=== PATIENT | female | born 1955 ===

== ENCOUNTER 2021-05-07 22:09 | Inpatient (IN) | payer SELFPAY ==
--- NOTE | 2021-05-07 22:32 | Emergency Department Report ---
ED Shortness of Breath HPI - General Chief Complaint: Dyspnea/Respdistress Stated Complaint: DIFFICULTY BREATHING Time Seen by Provider: 05/07/21 22:31 Source: EMS Mode of arrival: Stretcher Limitations: Physical Limitation - History of Present Illness Initial Comments: Patient presents by EMS secondary to shortness of breath. Since she has had trouble breathing. She states that she has been coughing up clear phlegm. She has been clearing her throat. She thought that she just had allergies. Regardless, she has become more more short of breath. She describes orthopnea. She has had no pain or swelling in the legs out of the ordinary. She has not had fevers or chills. She has had no chest pain. She has had no sick contacts. Due to her ongoing and worsening dyspnea, EMS was called and the patient was transported here [facility]. - Related Data Allergies Allergy/AdvReac Type Severity Reaction Status Date / Time No Known Allergies Allergy Unverified 05/08/21 01:05 ED Review of Systems ROS: Stated complaint: DIFFICULTY BREATHING Other details as noted in HPI Comment: All other systems reviewed and negative Constitutional: fever (Subjective) Eyes: denies: vision change ENT: denies: throat pain Respiratory: cough Cardiovascular: denies: chest pain Endocrine: denies: unexplained weight loss Gastrointestinal: denies: abdominal pain Genitourinary: denies: dysuria Musculoskeletal: denies: back pain Skin: denies: rash Neurological: denies: paresthesias Hematological/Lymphatic: denies: easy bruising ED Past Medical Hx - Past Medical History Hx Congestive Heart Failure: No - Family History Family history: no significant ED Physical Exam - General Limitations: Physical Limitation (Hypoxia and dyspnea), Other (Pulse ox on oxygen was normal. On room air, she was hypoxic) General appearance: alert, in distress (Moderate), obese - Head Head exam: Present: atraumatic, normocephalic - Eye Eye exam: Present: normal appearance, EOMI. Absent: scleral icterus - ENT ENT exam: Present: normal external ear exam - Neck Neck exam: Present: normal inspection. Absent: meningismus - Respiratory Respiratory exam: Present: respiratory distress (Moderate), rhonchi (Bilateral) - Cardiovascular Cardiovascular Exam: Present: regular rate, normal rhythm. Absent: JVD - GI/Abdominal GI/Abdominal exam: Present: soft. Absent: tenderness - Extremities Exam Extremities exam: Present: normal capillary refill, pedal edema (Bilateral 2+) - Back Exam Back exam: Absent: CVA tenderness (R), CVA tenderness (L) - Neurological Exam Neurological exam: Present: alert, oriented X3, CN II-XII intact. Absent: motor sensory deficit - Psychiatric Psychiatric exam: Present: normal affect, normal mood - Skin Skin exam: Present: warm ED Course Vital Signs 05/07/21 05/08/21 05/08/21 22:24 00:00 02:38 Temperature 99.0 F 98 F Pulse Rate 72 68 72 Respiratory 20 18 18 Rate Blood Pressure 113/54 125/66 127/78 [Left] O2 Sat by Pulse 96 98 100 Oximetry - Reevaluation(s) Reevaluation #1: 05/07/21 22:31 EMS was met upon arrival. IV and labs ordered. X-ray was ordered. Old records noted. Reevaluation #2: 05/08/21 03:30 Work-up was completed and the patient was admitted ED Medical Decision Making - Lab Data Result diagrams: 05/07/21 22:44 05/07/21 22:44 Rhythm strip: Normal sinus rhythm without ectopy per my doctor observed 10 seconds. - EKG Data -: EKG Interpreted by Me - EKG Data 05/08/21 03:30 EKG shows a normal sinus rhythm without ectopy. Intervals are normal. Patient has no ST elevation to suggest STEMI. - Radiology Data Radiology results: report reviewed - Medical Decision Making Patient presents with shortness of breath and reports of dependent edema. Despite this, she does have findings that are more concerning for coronavirus. She has a patchy infiltrative process on x-ray with a normal BN P. Patient be treated symptomatically for coronavirus. She has been admitted. The hospitalist has seen the patient. There is no indication for diuresis. She does not have pneumothorax on x-ray. There is no evidence of STEMI or NSTEMI. Critical Care Time: Yes (45 minutes based on respiratory distress and failure. This is a minus all ) Critical care attestation.: If time is entered above; I have spent that time in minutes in the direct care of this critically ill patient, excluding procedure time. ED Disposition Clinical Impression: Hypoxia, Suspected COVID-19 virus infection Disposition: ADMITTED INPATIENT Is pt being admited?: Yes Condition: Stable Referrals: PRIMARY CARE, [Primary Care Provider] - 3-5 Days
[2021-05-07 23:45] LABS: Alanine Aminotransferase 36 units/L (7-56); Albumin 3.6 g/dL (3.9-5); BUN/Creatinine Ratio 9; Blood Urea Nitrogen 7 mg/dL (7-17); Calcium 8.6 mg/dL (8.4-10.2); Hemolysis Index 11
[2021-05-07 23:51] LABS: Hematocrit 38.4 % (30.3-42.9); Hemoglobin 12.4 gm/dl (10.1-14.3); Mean Corpuscular HGB Conc 32 % (30-34); Mean Corpuscular Volume 92 fl (79-97); Platelet Count 419 K/mm3 (140-440); Red Blood Count 4.17 M/mm3 (3.65-5.03)
--- NOTE | 2021-05-08 00:09 | XRay Report ---
CHEST 1 VIEW INDICATION: cough. COMPARISON: None FINDINGS: SUPPORT DEVICES: None. HEART: Within normal limits. LUNGS/PLEURA: Patchy bibasilar airspace disease worrisome for pneumonia. ADDITIONAL FINDINGS: None. IMPRESSION: 1. Lung findings as above. Signer Name: Moiz Chacon MD Signed: 05/08/2021 12:04 AM Workstation Name: [id number]
[2021-05-08] MEDS ORDERED: ALBUTEROL 8.5 GM MDI INHALATION IH ONE (01:45)
[2021-05-08] MEDS ORDERED: MAGNESIUM HYDROXIDE (MOM) ORAL LIQD UDC PO PRN (01:46)
[2021-05-08] MEDS ORDERED: MORPHINE 2 MG/1 ML INJ IV PRN (01:46)
[2021-05-08] MEDS ORDERED: ONDANSETRON 4 MG/2 ML INJ IV PRN (01:46)
[2021-05-08] MEDS ORDERED: MORPHINE 4 MG/1 ML INJ IV PRN (01:46)
[2021-05-08] MEDS ORDERED: ACETAMINOPHEN 325 MG TAB PO PRN (01:46)
--- NOTE | 2021-05-08 01:55 | History and Physical Report ---
History of Present Illness Date of examination: 05/08/21 Date of admission: 05/08/2021 Chief complaint: Shortness of Breath History of present illness: 66-year-old female presenting to the emergency room complaining of shortness of breath and cough that has been ongoing for the past few weeks. Cough has been productive of some clear sputum. She denies any fever or chills and denies any chest pain. She also indicates that she has noticed some mild swelling of her lower extremities. She denies any headache or dizziness and denies any diaphoresis. Patient decided to call EMS today because of her worsening shortness of breath. She denies any sick contacts and no recent travel. Denies any contact with anyone with COVID-19. Work-up in the emergency room today chest x-ray shows bilateral pneumonia. Patient has been admitted with pneumonia we will also check for COVID-19. Past History Past Medical History: No medical history Past Surgical History: No surgical history Social history: no significant social history Family history: no significant family history Medications and Allergies Allergies Allergy/AdvReac Type Severity Reaction Status Date / Time No Known Allergies Allergy Unverified 05/08/21 01:05 Active Meds: Active Medications Acetaminophen (Acetaminophen 325 Mg Tab) 650 mg PO Q4H PRN PRN Reason: Pain MILD(1-3)/Fever >100.5/MARTINEZ Heparin Sodium (Porcine) (Heparin 5,000 Unit/1 Ml Vial) 5,000 unit SUB-Q Q8HR JEOVANY Sodium Chloride (Nacl 0.9% 1000 Ml) 1,000 mls @ 75 mls/hr IV DIRECT JEOVANY Ceftriaxone Sodium (Rocephin/Ns 2 Gm/100 Ml) 2 gm in 100 mls @ 200 mls/hr IV Q24H JEOVANY; Protocol Azithromycin (Zithromax/Ns) 500 mg in 250 mls @ 250 mls/hr IV Q24H JEOVANY; Protocol Magnesium Hydroxide (Magnesium Hydroxide (Mom) Oral Liqd Udc) 30 ml PO Q4H PRN PRN Reason: Constipation Morphine Sulfate (Morphine 2 Mg/1 Ml Inj) 2 mg IV Q4H PRN PRN Reason: Pain, Moderate (4-6) Morphine Sulfate (Morphine 4 Mg/1 Ml Inj) 4 mg IV Q4H PRN PRN Reason: Pain , Severe (7-10) Ondansetron HCl (Ondansetron 4 Mg/2 Ml Inj) 4 mg IV Q8H PRN PRN Reason: Nausea And Vomiting Sodium Chloride (Sodium Chloride 0.9% 10 Ml Flush Syringe) 10 ml IV BID JEOVANY Sodium Chloride (Sodium Chloride 0.9% 10 Ml Flush Syringe) 10 ml IV PRN PRN PRN Reason: LINE FLUSH Review of Systems Constitutional: no fever, no chills Ears, nose, mouth and throat: no nasal congestion, no sore throat Respiratory: cough, shortness of breath Gastrointestinal: no abdominal pain, no nausea, no vomiting, no diarrhea Genitourinary Female: no pelvic pain, no flank pain, no dysuria, no hematuria Musculoskeletal: no neck pain, no low back pain Integumentary: no rash, no pruritis Neurological: no headaches, no confusion Psychiatric: no anxiety, no depression Endocrine: no polyphagia, no polydipsia, no polyuria, no nocturia Exam - Constitutional Vitals: Temp Pulse Resp BP Pulse Ox 99.0 F 72 20 113/54 96 05/07/21 22:24 05/07/21 22:24 05/07/21 22:24 05/07/21 22:24 05/07/21 22:24 General appearance: Present: no acute distress, well-nourished, obese - EENT Eyes: Present: PERRL, EOM intact. Absent: scleral icterus ENT: hearing intact, clear oral mucosa, dentition normal - Neck Neck: Present: supple, normal ROM - Respiratory Respiratory effort: normal Respiratory: bilateral: diminished - Cardiovascular Rhythm: regular Heart Sounds: Present: S1 & S2. Absent: gallop, systolic murmur, diastolic murmur, rub, click - Extremities Extremities: no ischemia, pulses intact, pulses symmetrical, No edema, normal temperature, normal color, Full ROM Peripheral Pulses: within normal limits - Abdominal General gastrointestinal: Present: soft, non-tender, non-distended, normal bowel sounds. Absent: mass - Integumentary Integumentary: Present: clear, warm, dry, normal turgor. Absent: rash - Musculoskeletal Musculoskeletal: strength equal bilaterally - Psychiatric Psychiatric: appropriate mood/affect, intact judgment & insight, memory intact, cooperative - Neurologic Neurologic: CNII-XII intact, no focal deficits, moves all extremities HEART Score - HEART Score Troponin: Troponin T < 0.010 ng/mL (0.00-0.029) 05/07/21 22:44 Results - Labs CBC & Chem 7: 05/07/21 22:44 05/07/21 22:44 Labs: Abnormal lab results 05/07/21 05/07/21 Range/Units 22:44 22:44 D-Dimer 967.09 H (0-234) ng/mlDDU Glucose 123 H (65-100) mg/dL AST 41 H (5-40) units/L Lactate Dehydrogenase 429 H (91-180) units/L C-Reactive Protein 5.60 H (0.00-1.30) mg/dL Albumin 3.6 L (3.9-5) g/dL Assessment and Plan - Patient Problems (1) Suspected COVID-19 virus infection Current Visit: Yes Status: Acute Plan to address problem: Patient placed on empiric IV antibiotics and IV steroid. We will schedule for COVID-19 testing. (2) Hypoxia Current Visit: Yes Status: Acute Plan to address problem: Will keep O2 saturation greater than equal to 92%. (3) DVT prophylaxis Current Visit: Yes Status: Acute Plan to address problem: Patient was placed on subcutaneous heparin. (4) Full code status Current Visit: Yes Status: Acute Plan to address problem: Patient is a full code.
[2021-05-08] MEDS: cefTRIAXone/NS 2 GM/100 ML 2 GM/100 ML BAG IV SCH ×2 (02:41→10:24)
[2021-05-08] MEDS: AZITHROMYCIN/NS 500 MG/250 ML 500 MG/250 ML BAG IV SCH ×2 (02:41→10:24)
[2021-05-08] MEDS: HEPARIN 5,000 UNIT/1 ML VIAL SUB-Q SCH ×3 (06:00→22:42)
[2021-05-08 07:07] LABS: Total Cells Counted 100
[2021-05-08 07:08] LABS: Band Neutrophils # (Manual) 0.2 K/mm3; Basophils % (Manual) 0 % (0.0-1.8); Eosinophils % (Manual) 0 % (0.0-4.3)
[2021-05-08 07:09] LABS: Platelet Estimate Consistent w Auto
--- NOTE | 2021-05-08 15:29 | Consultation ---
History of Present Illness - Reason for Consult Consult date: 05/08/21 COVID PUI Requesting physician: BRAD VIDALES - History of Present Illness The patient is a 66-year-old female with known medical history admitted with shortness of breath and concerns for COVID-19 PUI. Afebrile, hypoxic and required nasal cannula. CRP 5.6, procalcitonin 0.07. Chest x-ray showed patchy bilateral pneumonia. Ferritin 181, LDH 429. D-dimer 967 Review of Systems: reviewed in the chart, unable to obtain, minimize risk of transmission Past History Past Medical History: No medical history Past Surgical History: No surgical history Social history: no significant social history Family history: no significant family history Medications and Allergies Allergies Allergy/AdvReac Type Severity Reaction Status Date / Time No Known Allergies Allergy Unverified 05/08/21 01:05 Active Meds: Active Medications Acetaminophen (Acetaminophen 325 Mg Tab) 650 mg PO Q4H PRN PRN Reason: Pain MILD(1-3)/Fever >100.5/MARTINEZ Azithromycin (Azithromycin 250 Mg Tab) 500 mg PO QDAY JEOVANY; Protocol Heparin Sodium (Porcine) (Heparin 5,000 Unit/1 Ml Vial) 5,000 unit SUB-Q Q8HR JEOVANY Last Admin: 05/08/21 06:00 Dose: 5,000 unit Sodium Chloride (Nacl 0.9% 1000 Ml) 1,000 mls @ 75 mls/hr IV DIRECT JEOVANY Ceftriaxone Sodium (Rocephin/Ns 2 Gm/100 Ml) 2 gm in 100 mls @ 200 mls/hr IV Q24HR JEOVANY; Protocol Last Admin: 05/08/21 10:24 Dose: 200 mls/hr Magnesium Hydroxide (Magnesium Hydroxide (Mom) Oral Liqd Udc) 30 ml PO Q4H PRN PRN Reason: Constipation Morphine Sulfate (Morphine 2 Mg/1 Ml Inj) 2 mg IV Q4H PRN PRN Reason: Pain, Moderate (4-6) Morphine Sulfate (Morphine 4 Mg/1 Ml Inj) 4 mg IV Q4H PRN PRN Reason: Pain , Severe (7-10) Ondansetron HCl (Ondansetron 4 Mg/2 Ml Inj) 4 mg IV Q8H PRN PRN Reason: Nausea And Vomiting Sodium Chloride (Sodium Chloride 0.9% 10 Ml Flush Syringe) 10 ml IV BID [facility] Last Admin: 05/08/21 10:24 Dose: 10 ml Sodium Chloride (Sodium Chloride 0.9% 10 Ml Flush Syringe) 10 ml IV PRN PRN PRN Reason: LINE FLUSH Physical Examination - Physical Exam Narrative exam: Physical Exam (reviewed in chart to minimize risk of transmission) Constitutional: deferred Head, Ears, Nose: deferred Eyes: deferred Neck: deferred Oral: deferred Cardiovascular: deferred Respiratory: deferred GI: deferred Musculoskeletal: deferred Skin: deferred Hem/Lymphatic: deferred Psych: deferred Neurological: deferred - Constitutional Vitals: Vital Signs Temp Pulse Resp BP Pulse Ox 97.5 F L 70 16 138/65 97 05/08/21 08:00 05/08/21 08:00 05/08/21 08:00 05/08/21 08:00 05/08/21 08:00 Temperature -Last 24 Hours Temperature 97.5 F Temperature 98 F Temperature 99.0 F Results - Labs CBC & Chem 7: 05/07/21 22:44 05/07/21 22:44 Labs: Abnormal lab results 05/07/21 05/07/21 Range/Units 22:44 22:44 D-Dimer 967.09 H (0-234) ng/mlDDU Glucose 123 H (65-100) mg/dL AST 41 H (5-40) units/L Lactate Dehydrogenase 429 H (91-180) units/L C-Reactive Protein 5.60 H (0.00-1.30) mg/dL Albumin 3.6 L (3.9-5) g/dL - Imaging and Cardiology Chest x-ray: report reviewed Assessment and Plan Cultures: SARS CoV2 PCR: pending A/P: 66/F with: #Bilateral pneumonia: Suspicious for COVID-19. CRP 5.6, procalcitonin 0.07. Chest x-ray showed patchy bilateral pneumonia. Ferritin 181, LDH 429. D-dimer 967 #Acute hypoxic respiratory failure: required NC. Recs: IV/PO Dexamethasone x 10 days started IV remdesivir x 5 days, if COVID-19 is negative, discontinue prophylactic anticoagulation based on d-dimer per hospital protocol procalcitonin is low, abx not needed trend ferritin, d-dimer, CRP every 2-3 days Dariana Doherty MD, FACP, [facility] O: [phone] F: [phone]
[2021-05-08] MEDS: DEXAMETHASONE 4 MG TAB PO SCH (16:25)
[2021-05-08 16:54] LABS: Alanine Aminotransferase 31 units/L (7-56); Albumin 3.3 g/dL (3.9-5); Blood Urea Nitrogen 7 mg/dL (7-17); Calcium 8.9 mg/dL (8.4-10.2); Hemolysis Index 3
[2021-05-08 17:06] LABS: BUN/Creatinine Ratio 10
[2021-05-08] MEDS ORDERED: REMDESIVIR 200 MG in SODIUM CHLORIDE 0.9% 250ML 250 ML IV ONE (17:29)
--- NOTE | 2021-05-08 17:51 | Event Note ---
Date: 05/08/21 Patient seen and examined COVID test neg, treat for CAP c/o SOB, assess for home o2 requirement If clinically stable possible d/c in the am
[2021-05-08] MEDS ORDERED: SODIUM CHLORIDE 0.9% 50 ML IVPB IV SCH (18:00)
[2021-05-09] MEDS: HEPARIN 5,000 UNIT/1 ML VIAL SUB-Q SCH ×3 (05:37→21:21)
--- NOTE | 2021-05-09 09:54 | Electrocardiograph Report ---
[facility] Test Date: 2021-05-08 Test Time: 01:22:03 Pat Name: DEMAR ORELLANA Department: Room: A471 Gender: F Gun Number: [id number] : 1955 Requested By: KIRAN CHAVARRIA Order Number: [id number] Reading MD: Carlin Hylton Measurements Intervals [place] Rate: 70 P: 9 NH: 127 QRS: 58 QRSD: 93 T: 260 QT: 427 QTc: 460 Interpretive Statements Sinus rhythm Abnormal T, consider ischemia, diffuse leads No previous ECG available for comparison Electronically Signed On 05-09-2021 9:54:15 EST by Carlin Hylton
[2021-05-09] MEDS ORDERED: AZITHROMYCIN 250 MG TAB PO SCH (10:00)
[2021-05-09] MEDS ORDERED: cefTRIAXone/NS 1 GM/50 ML 1 GM/50 ML BAG IV SCH (10:00)
[2021-05-09 10:33] LABS: Basophils # (Auto) 0.1 K/mm3 (0.0-0.1); Basophils % (Auto) 0.9 % (0.0-1.8); Eosinophils % (Auto) 0.1 % (0.0-4.3); Hematocrit 37.9 % (30.3-42.9); Hemoglobin 12.2 gm/dl (10.1-14.3); Lymphocytes # (Auto) 1.2 K/mm3 (1.2-5.4); Lymphocytes % (Auto) 16.5 % (13.4-35.0); Mean Corpuscular HGB Conc 32 % (30-34); Mean Corpuscular Volume 92 fl (79-97); Monocytes # (Auto) 0.4 K/mm3 (0.0-0.8); Monocytes % (Auto) 5.2 % (0.0-7.3); Platelet Count 450 K/mm3 (140-440); Red Blood Count 4.12 M/mm3 (3.65-5.03)
[2021-05-09 10:57] LABS: Alanine Aminotransferase 34 units/L (7-56); Albumin 3.7 g/dL (3.9-5); Blood Urea Nitrogen 9 mg/dL (7-17); Calcium 9.3 mg/dL (8.4-10.2); Hemolysis Index 19
[2021-05-09 10:58] LABS: BUN/Creatinine Ratio 15
--- NOTE | 2021-05-09 11:21 | Cat Scan Report ---
CT angio chest INDICATION / CLINICAL INFORMATION: Elevated D-dimer, hypoxia, rule out PE 100 ML OMNI 350. TECHNIQUE: Axial CT images were obtained through the chest after injection of IV contrast. 3 plane MIP and/or 3D reconstructions were produced. All CT scans at this location are performed using CT dose reduction f or ALARA by means of automated exposure control. COMPARISON: None available. FINDINGS: PULMONARY ARTERIES: No central pulmonary artery filling defects. Respiratory motion degrades image qu ality obscuring the lobar, segmental and subsegmental pulmonary arteries. HEART: Small quantity of scattered coronary atherosclerotic calcifications. MEDIASTINUM / LORNE: No significant abnormality. LUNGS: Groundglass opacities involving all 5 lobes of the lung demonstrating a peripheral subpleural predilection. No pleural effusion. No pneumothorax. ADDITIONAL FINDINGS: None. UPPER ABDOMEN: Nonobstructing right renal stones.. SKELETAL STRUCTURES: No significant osseous abnormality. IMPRESSION: 1. No central pulmonary embolism. The distal pulmonary arteries degraded by respiratory motion. 2. Bilateral airspace disease with imaging features of Covid pneumonia. Commonly reported imaging features of viral pneumonia are present. [email or web address]://pubs.rsna.org/doi/full/10. [email or web address]/[email or web address] Signer Name: Ta Munoz MD Signed: 05/09/2021 11:16 AM Workstation Name: [id number]
[2021-05-09] MEDS: SODIUM CHLORIDE 0.9% 1000 ML 1,000 ML IV SCH (12:39)
--- NOTE | 2021-05-09 16:34 | Progress Note ---
Assessment and Plan Cultures: SARS CoV2 PCR: negative A/P: 66/F with: #Bilateral pneumonia: negative for COVID-19. CRP 5.6, procalcitonin 0.07. Chest x-ray showed patchy bilateral pneumonia. Ferritin 181, LDH 429. D-dimer 967. #Acute hypoxic respiratory failure: requiring NC. Recs: COVID-19 negative PO Ceftin 500 mg twice daily plus PO azithromycin 5 mg daily for 4 more days Will sign off. Please call with questions. Dariana Doherty MD, FACP, [facility] O: [phone] F: [phone] Subjective Date of service: 05/09/21 Interval history: Reports cough with sputum production. No fever. COVID-19 test came back negative. Objective - Exam Narrative Exam: Physical Exam: Constitutional: Alert, cooperative. No acute distress Head, Ears, Nose: Normocephalic, atraumatic. External ears, nose normal Eyes: Conjunctivae/corneas clear. No icterus. No ptosis. Neck: Supple, no meningeal signs Cardiovascular: S1, S2 + Respiratory: few rhonchi + GI: Soft, non-tender; bowel sounds normal. No peritoneal signs Musculoskeletal: No pedal edema, no cyanosis. Skin: No rash or abscess Hem/Lymphatic: No palpable cervical or supraclavicular nodes. No lymphangitis Psych: Mood ok. Affect normal Neurological: Awake, alert, oriented. No gross abnormality - Constitutional Vitals: Vital Signs Temp Pulse Resp BP Pulse Ox 97.9 F 64 19 138/61 95 05/09/21 08:26 05/09/21 08:26 05/09/21 08:26 05/09/21 08:26 05/09/21 08:26 Temperature -Last 24 Hours Temperature 97.9 F Temperature 98.0 F Temperature 98.2 F Temperature 98.1 F - Labs CBC & Chem 7: 05/09/21 10:03 05/09/21 10:03 Labs: Abnormal lab results 05/08/21 05/09/21 05/09/21 Range/Units 16:20 10:03 10:03 Plt Count 450 H (140-440) K/mm3 Seg Neutrophils % 77.3 H (40.0-70.0) % Glucose 108 H 186 H (65-100) mg/dL Albumin 3.3 L 3.7 L (3.9-5) g/dL
[2021-05-09] MEDS: AZITHROMYCIN 250 MG TAB PO SCH (17:06)
--- NOTE | 2021-05-09 18:29 | Progress Note ---
Assessment and Plan Assessment and plan: 66-year-old female with PMH of morbid obesity and ex-smoker quit smoking in 2019 presenting to the emergency room with a 2-week history of shortness of breath and cough . Cough has been productive of some clear sputum. She denies any fever or chills and denies any chest pain. She also indicates that she has noticed some mild swelling of her lower extremities. She denies any headache or dizziness and denies any diaphoresis. Patient decided to call EMS today because of her worsening shortness of breath. She is not vaccinated against COVID-19.She denies any sick contacts and no recent travel. Denies any contact with anyone with COVID-19.Work-up in the emergency room today chest x- ray shows bilateral pneumonia. Found to be hypoxic needing 3 L of O2. Patient denies history of COPD and never needed home O2. Does not use any inhalers at home. (1) bilateral pneumonia suspected COVID-19 virus infection Current Visit: Yes Status: Acute Plan to address problem: CTA shows diffuse bilateral pneumonia with infiltrates in all lobes of lungs without adenopathy. patient placed on empiric IV antibiotics and IV steroid. Patient is negative for COVID-19. CRP 5.6. Not vaccinated against COVID-19 We will repeat COVID-19 test since suspicion is high ID consulted and evaluating (2) acute hypoxic respiratory failure Current Visit: Yes Status: Acute Plan to address problem: Will keep O2 saturation greater than equal to 92%. Currently needing 3 L O2 (3) D-dimer 967 CTA negative for pulmonary medicine. Ultrasound negative for DVT in lower extremities. DVT prophylaxis Current Visit: Yes Status: Acute Plan to address problem: Patient was placed on subcutaneous heparin. (4) Full code status Current Visit: Yes Status: Acute Plan to address problem: Patient is a full code. History Interval history: Patient was that she is breathing better. She is on 3 L of O2. She still has cough but no purulent sputum or hemoptysis. No pleuritic chest pain. Hospitalist Physical - Constitutional Vitals: Temp Pulse Resp BP Pulse Ox 97.9 F 64 20 138/61 97 05/09/21 08:26 05/09/21 08:26 05/09/21 10:00 05/09/21 08:26 05/09/21 10:00 General appearance: Present: no acute distress, obese (Morbidly obese) - EENT Eyes: Present: PERRL, EOM intact ENT: hearing intact - Neck Neck: Present: supple - Respiratory Respiratory effort: normal Respiratory: bilateral: diminished - Cardiovascular Rhythm: regular - Extremities Extremities: No edema - Abdominal General gastrointestinal: soft, non-tender - Integumentary Integumentary: Absent: rash - Psychiatric Psychiatric: appropriate mood/affect - Neurologic Neurologic: no focal deficits, moves all extremities HEART Score - HEART Score Troponin: Troponin T < 0.010 ng/mL (0.00-0.029) 05/07/21 22:44 Results - Labs CBC & Chem 7: 05/09/21 10:03 05/10/21 04:57 Labs: Laboratory Last Values WBC 7.3 K/mm3 (4.5-11.0) 05/09/21 10:03 RBC 4.12 M/mm3 (3.65-5.03) 05/09/21 10:03 Hgb 12.2 gm/dl (10.1-14.3) 05/09/21 10:03 Hct 37.9 % (30.3-42.9) 05/09/21 10:03 MCV 92 fl (79-97) 05/09/21 10:03 MCH 30 pg (28-32) 05/09/21 10:03 MCHC 32 % (30-34) 05/09/21 10:03 RDW 14.0 % (13.2-15.2) 05/09/21 10:03 Plt Count 450 K/mm3 (140-440) H 05/09/21 10:03 Lymph % (Auto) 16.5 % (13.4-35.0) 05/09/21 10:03 [place] % (Auto) 5.2 % (0.0-7.3) 05/09/21 10:03 Eos % (Auto) 0.1 % (0.0-4.3) 05/09/21 10:03 Baso % (Auto) 0.9 % (0.0-1.8) 05/09/21 10:03 Lymph # (Auto) 1.2 K/mm3 (1.2-5.4) 05/09/21 10:03 [place] # (Auto) 0.4 K/mm3 (0.0-0.8) 05/09/21 10:03 Eos # (Auto) 0.0 K/mm3 (0.0-0.4) 05/09/21 10:03 Baso # (Auto) 0.1 K/mm3 (0.0-0.1) 05/09/21 10:03 Add Manual Diff Complete 05/07/21 22:44 Total Counted 100 05/07/21 22:44 Seg Neutrophils % 77.3 % (40.0-70.0) H 05/09/21 10:03 Seg Neuts % (Manual) 67.0 % (40.0-70.0) 05/07/21 22:44 Band Neutrophils % 3.0 % 05/07/21 22:44 Lymphocytes % (Manual) 26.0 % (13.4-35.0) 05/07/21 22:44 Reactive Lymphs % (Man) 0 % 05/07/21 22:44 Monocytes % (Manual) 4.0 % (0.0-7.3) 05/07/21 22:44 Eosinophils % (Manual) 0 % (0.0-4.3) 05/07/21 22:44 Basophils % (Manual) 0 % (0.0-1.8) 05/07/21 22:44 Metamyelocytes % 0 % 05/07/21 22:44 Myelocytes % 0 % 05/07/21 22:44 Promyelocytes % 0 % 05/07/21 22:44 Blast Cells % 0 % 05/07/21 22:44 Nucleated RBC % Not Reportable 05/07/21 22:44 Seg Neutrophils # 5.7 K/mm3 (1.8-7.7) 05/09/21 10:03 Seg Neutrophils # Man 3.8 K/mm3 (1.8-7.7) 05/07/21 22:44 Band Neutrophils # 0.2 K/mm3 05/07/21 22:44 Lymphocytes # (Manual) 1.5 K/mm3 (1.2-5.4) 05/07/21 22:44 Abs React Lymphs (Man) 0.0 K/mm3 05/07/21 22:44 Monocytes # (Manual) 0.2 K/mm3 (0.0-0.8) 05/07/21 22:44 Eosinophils # (Manual) 0.0 K/mm3 (0.0-0.4) 05/07/21 22:44 Basophils # (Manual) 0.0 K/mm3 (0.0-0.1) 05/07/21 22:44 Metamyelocytes # 0.0 K/mm3 05/07/21 22:44 Myelocytes # 0.0 K/mm3 05/07/21 22:44 Promyelocytes # 0.0 K/mm3 05/07/21 22:44 Blast Cells # 0.0 K/mm3 05/07/21 22:44 WBC Morphology Not Reportable 05/07/21 22:44 Hypersegmented Neuts Not Reportable 05/07/21 22:44 Hyposegmented Neuts Not Reportable 05/07/21 22:44 Hypogranular Neuts Not Reportable 05/07/21 22:44 Smudge Cells Not Reportable 05/07/21 22:44 Toxic Granulation Not Reportable 05/07/21 22:44 Toxic Vacuolation Not Reportable 05/07/21 22:44 Dohle Bodies Not Reportable 05/07/21 22:44 Pelger-Huet Anomaly Not Reportable 05/07/21 22:44 Anabella Rods Not Reportable 05/07/21 22:44 Platelet Estimate Consistent w auto 05/07/21 22:44 Clumped Platelets Not Reportable 05/07/21 22:44 Plt Clumps, EDTA Not Reportable 05/07/21 22:44 Large Platelets Not Reportable 05/07/21 22:44 Giant Platelets Not Reportable 05/07/21 22:44 Platelet Satelliting Not Reportable 05/07/21 22:44 Plt Morphology Comment Not Reportable 05/07/21 22:44 RBC Morphology Not Reportable 05/07/21 22:44 Dimorphic RBCs Not Reportable 05/07/21 22:44 Polychromasia Not Reportable 05/07/21 22:44 Hypochromasia Not Reportable 05/07/21 22:44 Poikilocytosis Not Reportable 05/07/21 22:44 Anisocytosis Not Reportable 05/07/21 22:44 Microcytosis Not Reportable 05/07/21 22:44 Macrocytosis Not Reportable 05/07/21 22:44 Spherocytes Not Reportable 05/07/21 22:44 Pappenheimer Bodies Not Reportable 05/07/21 22:44 Sickle Cells Not Reportable 05/07/21 22:44 Target Cells Not Reportable 05/07/21 22:44 Tear Drop Cells Not Reportable 05/07/21 22:44 Ovalocytes Not Reportable 05/07/21 22:44 Helmet Cells Not Reportable 05/07/21 22:44 Morrison-[place] Bodies Not Reportable 05/07/21 22:44 [place] Rings Not Reportable 05/07/21 22:44 [place] Cells Not Reportable 05/07/21 22:44 Bite Cells Not Reportable 05/07/21 22:44 Crenated Cell Not Reportable 05/07/21 22:44 Elliptocytes Not Reportable 05/07/21 22:44 Acanthocytes (Spur) Not Reportable 05/07/21 22:44 Rouleaux Not Reportable 05/07/21 22:44 Hemoglobin C Crystals Not Reportable 05/07/21 22:44 Schistocytes Not Reportable 05/07/21 22:44 Malaria parasites Not Reportable 05/07/21 22:44 Matthew Bodies Not Reportable 05/07/21 22:44 Hem Pathologist Commnt No 05/07/21 22:44 D-Dimer 967.09 ng/mlDDU (0-234) H 05/07/21 22:44 Sodium 143 mmol/L (137-145) 05/09/21 10:03 Potassium 3.8 mmol/L (3.6-5.0) 05/09/21 10:03 Chloride 104.8 mmol/L (98-107) 05/09/21 10:03 Carbon Dioxide 24 mmol/L (22-30) 05/09/21 10:03 Anion Gap 18 mmol/L 05/09/21 10:03 BUN 9 mg/dL (7-17) 05/09/21 10:03 Creatinine 0.6 mg/dL (0.6-1.2) 05/09/21 10:03 Estimated GFR > 60 ml/min 05/09/21 10:03 BUN/Creatinine Ratio 15 % 05/09/21 10:03 Glucose 186 mg/dL (65-100) H 05/09/21 10:03 Calcium 9.3 mg/dL (8.4-10.2) 05/09/21 10:03 Ferritin 181.3 ng/mL (10.0-200.0) 05/07/21 22:44 Total Bilirubin 0.40 mg/dL (0.1-1.2) 05/09/21 10:03 AST 33 units/L (5-40) 05/09/21 10:03 ALT 34 units/L (7-56) 05/09/21 10:03 Alkaline Phosphatase 73 units/L (35-129) 05/09/21 10:03 Lactate Dehydrogenase 429 units/L (91-180) H 05/07/21 22:44 Troponin T < 0.010 ng/mL (0.00-0.029) 05/07/21 22:44 C-Reactive Protein 5.60 mg/dL (0.00-1.30) H 05/07/21 22:44 NT-Pro-B Natriuret Pep 120.5 pg/mL (0-900) 05/07/21 22:44 Total Protein 7.6 g/dL (6.3-8.2) 05/09/21 10:03 Albumin 3.7 g/dL (3.9-5) L 05/09/21 10:03 Albumin/Globulin Ratio 0.9 % 05/09/21 10:03 Procalcitonin 0.07 ng/mL (<0.15) 05/07/21 22:44 Coronavirus (PCR) Negative (Negative) 05/07/21 10:00 Mcdonough/IV: Voiding Method Toilet Active Medications - Current Medications Current Medications: Generic Name Dose Route Start Last Admin Trade Name Freq PRN Reason Stop Dose Admin Acetaminophen 650 mg 05/08/21 01:46 05/09/21 17:05 Acetaminophen 325 Mg Tab PO 650 mg Q4H PRN Administration Pain MILD(1-3)/Fever >100.5/MARTINEZ Azithromycin 500 mg 05/09/21 17:00 05/09/21 17:06 Azithromycin 250 Mg Tab PO 05/13/21 16:59 500 mg QDAY JEOVANY Administration Protocol Cefuroxime Axetil 500 mg 05/09/21 22:00 Cefuroxime 250 Mg Tab PO 05/13/21 21:59 Q12HR JEOVANY Heparin Sodium (Porcine) 5,000 unit 05/08/21 06:00 05/09/21 14:39 Heparin 5,000 Unit/1 Ml Vial SUB-Q 5,000 unit Q8HR JEOVANY Administration Sodium Chloride 1,000 mls @ 75 mls/hr 05/08/21 02:00 05/09/21 12:39 Nacl 0.9% 1000 Ml IV 75 mls/hr DIRECT JEOVANY Administration Magnesium Hydroxide 30 ml 05/08/21 01:46 Magnesium Hydroxide (Mom) Oral Liqd Udc PO Q4H PRN Constipation Morphine Sulfate 2 mg 05/08/21 01:46 Morphine 2 Mg/1 Ml Inj IV Q4H PRN Pain, Moderate (4-6) Morphine Sulfate 4 mg 05/08/21 01:46 Morphine 4 Mg/1 Ml Inj IV Q4H PRN Pain , Severe (7-10) Ondansetron HCl 4 mg 05/08/21 01:46 Ondansetron 4 Mg/2 Ml Inj IV Q8H PRN Nausea And Vomiting Sodium Chloride 10 ml 05/08/21 10:00 05/09/21 12:38 Sodium Chloride 0.9% 10 Ml Flush Syringe IV 10 ml BID JEOVANY Administration Sodium Chloride 10 ml 05/08/21 01:46 Sodium Chloride 0.9% 10 Ml Flush Syringe IV PRN PRN LINE FLUSH
[2021-05-09] MEDS: DEXAMETHASONE 4 MG TAB PO SCH (19:51)
[2021-05-09] MEDS ORDERED: REMDESIVIR 100 MG in SODIUM CHLORIDE 0.9% 250ML 250 ML IV SCH (21:00)
[2021-05-10] MEDS: SODIUM CHLORIDE 0.9% 1000 ML 1,000 ML IV SCH (06:12)
[2021-05-10] MEDS: HEPARIN 5,000 UNIT/1 ML VIAL SUB-Q SCH ×3 (06:12→21:22)
[2021-05-10 06:28] LABS: Alanine Aminotransferase 33 units/L (7-56); Albumin 3.3 g/dL (3.9-5); Blood Urea Nitrogen 12 mg/dL (7-17); Calcium 8.7 mg/dL (8.4-10.2); Hemolysis Index 15
[2021-05-10 06:29] LABS: BUN/Creatinine Ratio 17
[2021-05-10] MEDS: AZITHROMYCIN 250 MG TAB PO SCH (09:19)
--- NOTE | 2021-05-10 13:07 | Progress Note ---
Assessment and Plan Cultures: SARS CoV2 PCR: negative A/P: 66/F with: #Bilateral pneumonia: negative for COVID-19. CRP 5.6, procalcitonin 0.07. Chest x-ray showed patchy bilateral pneumonia. Ferritin 181, LDH 429. D-dimer 967. #Acute hypoxic respiratory failure: requiring NC. Recs: f/u repeat COVID-19 continue PO Ceftin 500 mg twice daily plus PO azithromycin 5 mg daily for 3 more days Dariana Doherty MD, FACP, [facility] O: [phone] F: [phone] Subjective Date of service: 05/10/21 Interval history: Reports cough with sputum production, feels fair. No fever. Objective - Exam Narrative Exam: Physical Exam: Constitutional: Alert, cooperative. No acute distress Head, Ears, Nose: Normocephalic, atraumatic. External ears, nose normal Eyes: Conjunctivae/corneas clear. No icterus. No ptosis. Neck: Supple, no meningeal signs Cardiovascular: S1, S2 + Respiratory: few rhonchi + GI: Soft, non-tender; bowel sounds normal. No peritoneal signs Musculoskeletal: No pedal edema, no cyanosis. Skin: No rash or abscess Hem/Lymphatic: No palpable cervical or supraclavicular nodes. No lymphangitis Psych: Mood ok. Affect normal Neurological: Awake, alert, oriented. No gross abnormality - Constitutional Vitals: Vital Signs Temp Pulse Resp BP Pulse Ox 98.3 F 63 18 126/53 96 05/10/21 07:54 05/10/21 07:54 05/10/21 07:54 05/10/21 07:54 05/10/21 07:54 Temperature -Last 24 Hours Temperature 98.3 F Temperature 98.1 F Temperature 98.1 F Temperature 98.1 F Temperature 98.7 F - Labs CBC & Chem 7: 05/09/21 10:03 05/10/21 04:57 Labs: Abnormal lab results 05/10/21 Range/Units 04:57 Chloride 107.8 H (98-107) mmol/L Glucose 105 H (65-100) mg/dL Albumin 3.3 L (3.9-5) g/dL
--- NOTE | 2021-05-10 15:14 | Vascular Lab Report ---
DUPLEX DOPPLER LOWER EXTREMITY VEINS, BILATERAL INDICATION / CLINICAL INFORMATION: Elevated D-dimer, rule out DVT. TECHNIQUE: Duplex doppler imaging was performed through the veins of both lower extremities using lloyd ous compression and other maneuvers. COMPARISON: None available. FINDINGS: RIGHT COMMON FEMORAL VEIN: Negative. RIGHT FEMORAL VEIN: Negative. RIGHT POPLITEAL VEIN: Negative. RIGHT CALF VEINS: Negative. LEFT COMMON FEMORAL VEIN: Negative. LEFT FEMORAL VEIN: Negative. LEFT POPLITEAL VEIN: Negative. LEFT CALF VEINS: Negative. ADDITIONAL FINDINGS: None. IMPRESSION: 1. No sonographic evidence for DVT in either lower extremity. Scribed by: Jaahira Chong RDMS, RVT Scribed: 05/10/2021 1:19 PM I have reviewed the images, agree with this report, and edited this report as needed. Signer Name: Alireza Smith MD Signed: 05/10/2021 3:10 PM Workstation Name: [id number]
--- NOTE | 2021-05-10 17:55 | Progress Note ---
Assessment and Plan Assessment and plan: 66-year-old female with PMH of morbid obesity and ex-smoker quit smoking in 2019 presenting to the emergency room with a 2-week history of shortness of breath and cough . Cough has been productive of some clear sputum. She denies any fever or chills and denies any chest pain. She also indicates that she has noticed some mild swelling of her lower extremities. She denies any headache or dizziness and denies any diaphoresis. Patient decided to call EMS today because of her worsening shortness of breath. She is not vaccinated against COVID-19.She denies any sick contacts and no recent travel. Denies any contact with anyone with COVID-19.Work-up in the emergency room today chest x- ray shows bilateral pneumonia. Found to be hypoxic needing 3 L of O2. Patient denies history of COPD and never needed home O2. Does not use any inhalers at home. (1) bilateral pneumonia suspected COVID-19 virus infection Current Visit: Yes Status: Acute Plan to address problem: CTA shows diffuse bilateral pneumonia with infiltrates in all lobes of lungs without adenopathy. patient placed on empiric IV antibiotics and IV steroid. CRP 5.6. LDH 429. CBC and CMP normal. Not vaccinated against COVID-19. Remains afebrile. PCR test negative for COVID-19. We will repeat COVID-19 test since suspicion is high ID consulted and evaluating (2) acute hypoxic respiratory failure Current Visit: Yes Status: Acute Plan to address problem: Will keep O2 saturation greater than equal to 92%. Currently needing 3 L O2 (3) D-dimer 967 CTA negative for pulmonary medicine. Ultrasound negative for DVT in lower extremities. DVT prophylaxis Current Visit: Yes Status: Acute Plan to address problem: Patient was placed on subcutaneous heparin. (4) Full code status Current Visit: Yes Status: Acute Plan to address problem: Patient is a full code. History Interval history: Patient reports feel better generally. Still has cough. Clear sputum. Linsey athing improved, still eating drinking soda. Remains afebrile. Hospitalist Physical - Constitutional Vitals: Temp Pulse Resp BP Pulse Ox 97.9 F 63 20 133/50 94 05/10/21 11:56 05/10/21 11:56 05/10/21 11:56 05/10/21 11:56 05/10/21 11:56 General appearance: Present: no acute distress, obese - EENT Eyes: Present: PERRL ENT: hearing intact (Morbidly obese) - Neck Neck: Present: supple - Respiratory Respiratory effort: normal Respiratory: bilateral: diminished - Cardiovascular Rhythm: regular - Extremities Extremities: No edema - Abdominal General gastrointestinal: soft, non-tender - Integumentary Integumentary: Absent: rash - Psychiatric Psychiatric: appropriate mood/affect - Neurologic Neurologic: no focal deficits, moves all extremities HEART Score - HEART Score Troponin: Troponin T < 0.010 ng/mL (0.00-0.029) 05/07/21 22:44 Results - Labs CBC & Chem 7: 05/09/21 10:03 05/10/21 04:57 Labs: Laboratory Last Values WBC 7.3 K/mm3 (4.5-11.0) 05/09/21 10:03 RBC 4.12 M/mm3 (3.65-5.03) 05/09/21 10:03 Hgb 12.2 gm/dl (10.1-14.3) 05/09/21 10:03 Hct 37.9 % (30.3-42.9) 05/09/21 10:03 MCV 92 fl (79-97) 05/09/21 10:03 MCH 30 pg (28-32) 05/09/21 10:03 MCHC 32 % (30-34) 05/09/21 10:03 RDW 14.0 % (13.2-15.2) 05/09/21 10:03 Plt Count 450 K/mm3 (140-440) H 05/09/21 10:03 Lymph % (Auto) 16.5 % (13.4-35.0) 05/09/21 10:03 [place] % (Auto) 5.2 % (0.0-7.3) 05/09/21 10:03 Eos % (Auto) 0.1 % (0.0-4.3) 05/09/21 10:03 Baso % (Auto) 0.9 % (0.0-1.8) 05/09/21 10:03 Lymph # (Auto) 1.2 K/mm3 (1.2-5.4) 05/09/21 10:03 [place] # (Auto) 0.4 K/mm3 (0.0-0.8) 05/09/21 10:03 Eos # (Auto) 0.0 K/mm3 (0.0-0.4) 05/09/21 10:03 Baso # (Auto) 0.1 K/mm3 (0.0-0.1) 05/09/21 10:03 Add Manual Diff Complete 05/07/21 22:44 Total Counted 100 05/07/21 22:44 Seg Neutrophils % 77.3 % (40.0-70.0) H 05/09/21 10:03 Seg Neuts % (Manual) 67.0 % (40.0-70.0) 05/07/21 22:44 Band Neutrophils % 3.0 % 05/07/21 22:44 Lymphocytes % (Manual) 26.0 % (13.4-35.0) 05/07/21 22:44 Reactive Lymphs % (Man) 0 % 05/07/21 22:44 Monocytes % (Manual) 4.0 % (0.0-7.3) 05/07/21 22:44 Eosinophils % (Manual) 0 % (0.0-4.3) 05/07/21 22:44 Basophils % (Manual) 0 % (0.0-1.8) 05/07/21 22:44 Metamyelocytes % 0 % 05/07/21 22:44 Myelocytes % 0 % 05/07/21 22:44 Promyelocytes % 0 % 05/07/21 22:44 Blast Cells % 0 % 05/07/21 22:44 Nucleated RBC % Not Reportable 05/07/21 22:44 Seg Neutrophils # 5.7 K/mm3 (1.8-7.7) 05/09/21 10:03 Seg Neutrophils # Man 3.8 K/mm3 (1.8-7.7) 05/07/21 22:44 Band Neutrophils # 0.2 K/mm3 05/07/21 22:44 Lymphocytes # (Manual) 1.5 K/mm3 (1.2-5.4) 05/07/21 22:44 Abs React Lymphs (Man) 0.0 K/mm3 05/07/21 22:44 Monocytes # (Manual) 0.2 K/mm3 (0.0-0.8) 05/07/21 22:44 Eosinophils # (Manual) 0.0 K/mm3 (0.0-0.4) 05/07/21 22:44 Basophils # (Manual) 0.0 K/mm3 (0.0-0.1) 05/07/21 22:44 Metamyelocytes # 0.0 K/mm3 05/07/21 22:44 Myelocytes # 0.0 K/mm3 05/07/21 22:44 Promyelocytes # 0.0 K/mm3 05/07/21 22:44 Blast Cells # 0.0 K/mm3 05/07/21 22:44 WBC Morphology Not Reportable 05/07/21 22:44 Hypersegmented Neuts Not Reportable 05/07/21 22:44 Hyposegmented Neuts Not Reportable 05/07/21 22:44 Hypogranular Neuts Not Reportable 05/07/21 22:44 Smudge Cells Not Reportable 05/07/21 22:44 Toxic Granulation Not Reportable 05/07/21 22:44 Toxic Vacuolation Not Reportable 05/07/21 22:44 Dohle Bodies Not Reportable 05/07/21 22:44 Pelger-Huet Anomaly Not Reportable 05/07/21 22:44 Anabella Rods Not Reportable 05/07/21 22:44 Platelet Estimate Consistent w auto 05/07/21 22:44 Clumped Platelets Not Reportable 05/07/21 22:44 Plt Clumps, EDTA Not Reportable 05/07/21 22:44 Large Platelets Not Reportable 05/07/21 22:44 Giant Platelets Not Reportable 05/07/21 22:44 Platelet Satelliting Not Reportable 05/07/21 22:44 Plt Morphology Comment Not Reportable 05/07/21 22:44 RBC Morphology Not Reportable 05/07/21 22:44 Dimorphic RBCs Not Reportable 05/07/21 22:44 Polychromasia Not Reportable 05/07/21 22:44 Hypochromasia Not Reportable 05/07/21 22:44 Poikilocytosis Not Reportable 05/07/21 22:44 Anisocytosis Not Reportable 05/07/21 22:44 Microcytosis Not Reportable 05/07/21 22:44 Macrocytosis Not Reportable 05/07/21 22:44 Spherocytes Not Reportable 05/07/21 22:44 Pappenheimer Bodies Not Reportable 05/07/21 22:44 Sickle Cells Not Reportable 05/07/21 22:44 Target Cells Not Reportable 05/07/21 22:44 Tear Drop Cells Not Reportable 05/07/21 22:44 Ovalocytes Not Reportable 05/07/21 22:44 Helmet Cells Not Reportable 05/07/21 22:44 Morrison-[place] Bodies Not Reportable 05/07/21 22:44 [place] Rings Not Reportable 05/07/21 22:44 [place] Cells Not Reportable 05/07/21 22:44 Bite Cells Not Reportable 05/07/21 22:44 Crenated Cell Not Reportable 05/07/21 22:44 Elliptocytes Not Reportable 05/07/21 22:44 Acanthocytes (Spur) Not Reportable 05/07/21 22:44 Rouleaux Not Reportable 05/07/21 22:44 Hemoglobin C Crystals Not Reportable 05/07/21 22:44 Schistocytes Not Reportable 05/07/21 22:44 Malaria parasites Not Reportable 05/07/21 22:44 Matthew Bodies Not Reportable 05/07/21 22:44 Hem Pathologist Commnt No 05/07/21 22:44 D-Dimer 967.09 ng/mlDDU (0-234) H 05/07/21 22:44 Sodium 145 mmol/L (137-145) 05/10/21 04:57 Potassium 3.7 mmol/L (3.6-5.0) 05/10/21 04:57 Chloride 107.8 mmol/L (98-107) H 05/10/21 04:57 Carbon Dioxide 25 mmol/L (22-30) 05/10/21 04:57 Anion Gap 16 mmol/L 05/10/21 04:57 BUN 12 mg/dL (7-17) 05/10/21 04:57 Creatinine 0.7 mg/dL (0.6-1.2) 05/10/21 04:57 Estimated GFR > 60 ml/min 05/10/21 04:57 BUN/Creatinine Ratio 17 % 05/10/21 04:57 Glucose 105 mg/dL (65-100) H 05/10/21 04:57 Calcium 8.7 mg/dL (8.4-10.2) 05/10/21 04:57 Ferritin 181.3 ng/mL (10.0-200.0) 05/07/21 22:44 Total Bilirubin 0.30 mg/dL (0.1-1.2) 05/10/21 04:57 AST 31 units/L (5-40) 05/10/21 04:57 ALT 33 units/L (7-56) 05/10/21 04:57 Alkaline Phosphatase 64 units/L (35-129) 05/10/21 04:57 Lactate Dehydrogenase 429 units/L (91-180) H 05/07/21 22:44 Troponin T < 0.010 ng/mL (0.00-0.029) 05/07/21 22:44 C-Reactive Protein 5.60 mg/dL (0.00-1.30) H 05/07/21 22:44 NT-Pro-B Natriuret Pep 120.5 pg/mL (0-900) 05/07/21 22:44 Total Protein 6.6 g/dL (6.3-8.2) 05/10/21 04:57 Albumin 3.3 g/dL (3.9-5) L 05/10/21 04:57 Albumin/Globulin Ratio 1.0 % 05/10/21 04:57 Procalcitonin 0.07 ng/mL (<0.15) 05/07/21 22:44 Coronavirus (PCR) Negative (Negative) 05/07/21 10:00 Mcdonough/IV: Voiding Method Toilet Active Medications - Current Medications Current Medications: Generic Name Dose Route Start Last Admin Trade Name Freq PRN Reason Stop Dose Admin Acetaminophen 650 mg 05/08/21 01:46 05/09/21 17:05 Acetaminophen 325 Mg Tab PO 650 mg Q4H PRN Administration Pain MILD(1-3)/Fever >100.5/MARTINEZ Azithromycin 500 mg 05/09/21 17:00 05/10/21 09:19 Azithromycin 250 Mg Tab PO 05/13/21 16:59 500 mg QDAY JEOVANY Administration Protocol Cefuroxime Axetil 500 mg 05/09/21 22:00 05/10/21 09:19 Cefuroxime 250 Mg Tab PO 05/13/21 21:59 500 mg Q12HR JEOVANY Administration Heparin Sodium (Porcine) 5,000 unit 05/08/21 06:00 05/10/21 13:32 Heparin 5,000 Unit/1 Ml Vial SUB-Q 5,000 unit Q8HR JEOVANY Administration Sodium Chloride 1,000 mls @ 75 mls/hr 05/08/21 02:00 05/10/21 06:12 Nacl 0.9% 1000 Ml IV 75 mls/hr DIRECT JEOVANY Administration Magnesium Hydroxide 30 ml 05/08/21 01:46 Magnesium Hydroxide (Mom) Oral Liqd Udc PO Q4H PRN Constipation Morphine Sulfate 2 mg 05/08/21 01:46 Morphine 2 Mg/1 Ml Inj IV Q4H PRN Pain, Moderate (4-6) Morphine Sulfate 4 mg 05/08/21 01:46 Morphine 4 Mg/1 Ml Inj IV Q4H PRN Pain , Severe (7-10) Ondansetron HCl 4 mg 05/08/21 01:46 Ondansetron 4 Mg/2 Ml Inj IV Q8H PRN Nausea And Vomiting Sodium Chloride 10 ml 05/08/21 10:00 05/10/21 09:19 Sodium Chloride 0.9% 10 Ml Flush Syringe IV 10 ml BID JEOVANY Administration Sodium Chloride 10 ml 05/08/21 01:46 Sodium Chloride 0.9% 10 Ml Flush Syringe IV PRN PRN LINE FLUSH
[2021-05-11 05:46] LABS: Alanine Aminotransferase 36 units/L (7-56); Albumin 3.3 g/dL (3.9-5); Blood Urea Nitrogen 11 mg/dL (7-17); Hemolysis Index 2
[2021-05-11 05:49] LABS: BUN/Creatinine Ratio 16
[2021-05-11] MEDS: HEPARIN 5,000 UNIT/1 ML VIAL SUB-Q SCH ×3 (06:14→22:00)
[2021-05-11] MEDS: AZITHROMYCIN 250 MG TAB PO SCH (10:03)
--- NOTE | 2021-05-11 14:50 | Progress Note ---
Assessment and Plan Cultures: 05/07/2021 SARS CoV2 PCR: negative 05/10/2021 SARS CoV2 PCR: Indeterminate A/P: 66/F with: #Bilateral pneumonia: initially negative for COVID-19. CRP 5.6, procalcitonin 0.07. Chest x-ray showed patchy bilateral pneumonia. Ferritin 181, LDH 429. D-dimer 967. #Acute hypoxic respiratory failure: requiring NC. Recs: Since she is still hypoxic, COVID-19 PCR being indeterminate, will start p.o. Decadron 6 mg daily for 10 days continue PO Ceftin 500 mg twice daily plus PO azithromycin 5 mg daily for 2 more days Dariana Doherty MD, FACP, [facility] ([facility] O: [phone] F: [phone] Subjective Date of service: 05/11/21 Interval history: No fever. Remains on oxygen by NC. Objective - Exam Narrative Exam: Physical Exam (deferred to minimize risk of COVID-19 transmission) - Constitutional Vitals: Vital Signs Temp Pulse Resp BP Pulse Ox 98.5 F 64 20 167/70 98 05/11/21 11:49 05/11/21 11:49 05/11/21 11:49 05/11/21 11:49 05/11/21 11:49 Temperature -Last 24 Hours Temperature 98.5 F Temperature 97.9 F Temperature 97.7 F Temperature 98.4 F Temperature 98.6 F - Labs CBC & Chem 7: 05/09/21 10:03 05/11/21 04:56 Labs: Abnormal lab results 05/11/21 05/11/21 Range/Units 04:56 04:56 D-Dimer 873.11 H (0-234) ng/mlDDU Chloride 107.4 H (98-107) mmol/L Glucose 121 H (65-100) mg/dL Albumin 3.3 L (3.9-5) g/dL
[2021-05-11] MEDS: DEXAMETHASONE 4 MG TAB PO SCH (17:00)
--- NOTE | 2021-05-11 20:40 | Progress Note ---
Assessment and Plan Assessment and plan: 66-year-old female with PMH of morbid obesity and ex-smoker quit smoking in 2019 presenting to the emergency room with a 2-week history of shortness of breath and cough . Cough has been productive of some clear sputum. She denies any fever or chills and denies any chest pain. She also indicates that she has noticed some mild swelling of her lower extremities. She denies any headache or dizziness and denies any diaphoresis. Patient decided to call EMS today because of her worsening shortness of breath. She is not vaccinated against COVID-19.She denies any sick contacts and no recent travel. Denies any contact with anyone with COVID-19.Work-up in the emergency room today chest x- ray shows bilateral pneumonia. Found to be hypoxic needing 3 L of O2. Patient denies history of COPD and never needed home O2. Does not use any inhalers at home. (1) COVID-19 bilateral pneumonia Current Visit: Yes Status: Acute Plan to address problem: CTA shows diffuse bilateral pneumonia with infiltrates in all lobes of lungs without adenopathy. patient placed on empiric IV antibiotics and IV steroid. CRP 5.6. LDH 429. CBC and CMP normal. Not vaccinated against COVID-19. Remains afebrile. PCR first test negative but the repeat positive for COVID-19. PCR improved from 5.6-0.8. No indication for remdesivir. (2) acute hypoxic respiratory failure Current Visit: Yes Status: Acute Plan to address problem: Will keep O2 saturation greater than equal to 92%. Currently needing 3 L O2 May need home O2. (3) D-dimer 967 CTA negative for pulmonary medicine. Ultrasound negative for DVT in lower extremities. DVT prophylaxis Current Visit: Yes Status: Acute Plan to address problem: Patient was placed on subcutaneous heparin. (4) Full code status Current Visit: Yes Status: Acute Plan to address problem: Patient is a full code. Discussed with the patient. History Interval history: Repeat COVID PCR test positive. Patient reports feel better generally. Still has cough. Clear sputum. Breathing improved, needing 3 L of O2. Remains afebrile. Tolerating diet. Hospitalist Physical - Constitutional Vitals: Temp Pulse Resp BP Pulse Ox 98.5 F 71 18 170/67 95 05/11/21 19:59 05/11/21 19:59 05/11/21 19:59 05/11/21 19:59 05/11/21 19:59 General appearance: Present: no acute distress, obese - EENT Eyes: Present: PERRL, EOM intact ENT: clear oral mucosa - Neck Neck: Present: supple - Respiratory Respiratory: bilateral: diminished - Cardiovascular Rhythm: regular - Extremities Extremities: No edema - Abdominal General gastrointestinal: soft, non-tender - Integumentary Integumentary: Absent: rash - Psychiatric Psychiatric: appropriate mood/affect - Neurologic Neurologic: no focal deficits, moves all extremities HEART Score - HEART Score Troponin: Troponin T < 0.010 ng/mL (0.00-0.029) 05/07/21 22:44 Results - Labs CBC & Chem 7: 05/09/21 10:03 05/13/21 04:49 Labs: Laboratory Last Values WBC 7.3 K/mm3 (4.5-11.0) 05/09/21 10:03 RBC 4.12 M/mm3 (3.65-5.03) 05/09/21 10:03 Hgb 12.2 gm/dl (10.1-14.3) 05/09/21 10:03 Hct 37.9 % (30.3-42.9) 05/09/21 10:03 MCV 92 fl (79-97) 05/09/21 10:03 MCH 30 pg (28-32) 05/09/21 10:03 MCHC 32 % (30-34) 05/09/21 10:03 RDW 14.0 % (13.2-15.2) 05/09/21 10:03 Plt Count 450 K/mm3 (140-440) H 05/09/21 10:03 Lymph % (Auto) 16.5 % (13.4-35.0) 05/09/21 10:03 [place] % (Auto) 5.2 % (0.0-7.3) 05/09/21 10:03 Eos % (Auto) 0.1 % (0.0-4.3) 05/09/21 10:03 Baso % (Auto) 0.9 % (0.0-1.8) 05/09/21 10:03 Lymph # (Auto) 1.2 K/mm3 (1.2-5.4) 05/09/21 10:03 [place] # (Auto) 0.4 K/mm3 (0.0-0.8) 05/09/21 10:03 Eos # (Auto) 0.0 K/mm3 (0.0-0.4) 05/09/21 10:03 Baso # (Auto) 0.1 K/mm3 (0.0-0.1) 05/09/21 10:03 Add Manual Diff Complete 05/07/21 22:44 Total Counted 100 05/07/21 22:44 Seg Neutrophils % 77.3 % (40.0-70.0) H 05/09/21 10:03 Seg Neuts % (Manual) 67.0 % (40.0-70.0) 05/07/21 22:44 Band Neutrophils % 3.0 % 05/07/21 22:44 Lymphocytes % (Manual) 26.0 % (13.4-35.0) 05/07/21 22:44 Reactive Lymphs % (Man) 0 % 05/07/21 22:44 Monocytes % (Manual) 4.0 % (0.0-7.3) 05/07/21 22:44 Eosinophils % (Manual) 0 % (0.0-4.3) 05/07/21 22:44 Basophils % (Manual) 0 % (0.0-1.8) 05/07/21 22:44 Metamyelocytes % 0 % 05/07/21 22:44 Myelocytes % 0 % 05/07/21 22:44 Promyelocytes % 0 % 05/07/21 22:44 Blast Cells % 0 % 05/07/21 22:44 Nucleated RBC % Not Reportable 05/07/21 22:44 Seg Neutrophils # 5.7 K/mm3 (1.8-7.7) 05/09/21 10:03 Seg Neutrophils # Man 3.8 K/mm3 (1.8-7.7) 05/07/21 22:44 Band Neutrophils # 0.2 K/mm3 05/07/21 22:44 Lymphocytes # (Manual) 1.5 K/mm3 (1.2-5.4) 05/07/21 22:44 Abs React Lymphs (Man) 0.0 K/mm3 05/07/21 22:44 Monocytes # (Manual) 0.2 K/mm3 (0.0-0.8) 05/07/21 22:44 Eosinophils # (Manual) 0.0 K/mm3 (0.0-0.4) 05/07/21 22:44 Basophils # (Manual) 0.0 K/mm3 (0.0-0.1) 05/07/21 22:44 Metamyelocytes # 0.0 K/mm3 05/07/21 22:44 Myelocytes # 0.0 K/mm3 05/07/21 22:44 Promyelocytes # 0.0 K/mm3 05/07/21 22:44 Blast Cells # 0.0 K/mm3 05/07/21 22:44 WBC Morphology Not Reportable 05/07/21 22:44 Hypersegmented Neuts Not Reportable 05/07/21 22:44 Hyposegmented Neuts Not Reportable 05/07/21 22:44 Hypogranular Neuts Not Reportable 05/07/21 22:44 Smudge Cells Not Reportable 05/07/21 22:44 Toxic Granulation Not Reportable 05/07/21 22:44 Toxic Vacuolation Not Reportable 05/07/21 22:44 Dohle Bodies Not Reportable 05/07/21 22:44 Pelger-Huet Anomaly Not Reportable 05/07/21 22:44 Anabella Rods Not Reportable 05/07/21 22:44 Platelet Estimate Consistent w auto 05/07/21 22:44 Clumped Platelets Not Reportable 05/07/21 22:44 Plt Clumps, EDTA Not Reportable 05/07/21 22:44 Large Platelets Not Reportable 05/07/21 22:44 Giant Platelets Not Reportable 05/07/21 22:44 Platelet Satelliting Not Reportable 05/07/21 22:44 Plt Morphology Comment Not Reportable 05/07/21 22:44 RBC Morphology Not Reportable 05/07/21 22:44 Dimorphic RBCs Not Reportable 05/07/21 22:44 Polychromasia Not Reportable 05/07/21 22:44 Hypochromasia Not Reportable 05/07/21 22:44 Poikilocytosis Not Reportable 05/07/21 22:44 Anisocytosis Not Reportable 05/07/21 22:44 Microcytosis Not Reportable 05/07/21 22:44 Macrocytosis Not Reportable 05/07/21 22:44 Spherocytes Not Reportable 05/07/21 22:44 Pappenheimer Bodies Not Reportable 05/07/21 22:44 Sickle Cells Not Reportable 05/07/21 22:44 Target Cells Not Reportable 05/07/21 22:44 Tear Drop Cells Not Reportable 05/07/21 22:44 Ovalocytes Not Reportable 05/07/21 22:44 Helmet Cells Not Reportable 05/07/21 22:44 Morrison-[place]ush[place] Bodies Not Reportable 05/07/21 22:44 [place] Rings Not Reportable 05/07/21 22:44 [place] Cells Not Reportable 05/07/21 22:44 Bite Cells Not Reportable 05/07/21 22:44 Crenated Cell Not Reportable 05/07/21 22:44 Elliptocytes Not Reportable 05/07/21 22:44 Acanthocytes (Spur) Not Reportable 05/07/21 22:44 Rouleaux Not Reportable 05/07/21 22:44 Hemoglobin C Crystals Not Reportable 05/07/21 22:44 Schistocytes Not Reportable 05/07/21 22:44 Malaria parasites Not Reportable 05/07/21 22:44 Matthew Bodies Not Reportable 05/07/21 22:44 Hem Pathologist Commnt No 05/07/21 22:44 D-Dimer 873.11 ng/mlDDU (0-234) H 05/11/21 04:56 Sodium 142 mmol/L (137-145) 05/11/21 04:56 Potassium 4.0 mmol/L (3.6-5.0) 05/11/21 04:56 Chloride 107.4 mmol/L (98-107) H 05/11/21 04:56 Carbon Dioxide 27 mmol/L (22-30) 05/11/21 04:56 Anion Gap 12 mmol/L 05/11/21 04:56 BUN 11 mg/dL (7-17) 05/11/21 04:56 Creatinine 0.7 mg/dL (0.6-1.2) 05/11/21 04:56 Estimated GFR > 60 ml/min 05/11/21 04:56 BUN/Creatinine Ratio 16 % 05/11/21 04:56 Glucose 121 mg/dL (65-100) H 05/11/21 04:56 Calcium 9.0 mg/dL (8.4-10.2) 05/11/21 04:56 Ferritin 181.3 ng/mL (10.0-200.0) 05/07/21 22:44 Total Bilirubin 0.30 mg/dL (0.1-1.2) 05/11/21 04:56 AST 32 units/L (5-40) 05/11/21 04:56 ALT 36 units/L (7-56) 05/11/21 04:56 Alkaline Phosphatase 67 units/L (35-129) 05/11/21 04:56 Lactate Dehydrogenase 429 units/L (91-180) H 05/07/21 22:44 Troponin T < 0.010 ng/mL (0.00-0.029) 05/07/21 22:44 C-Reactive Protein 0.80 mg/dL (0.00-1.30) 05/11/21 04:56 NT-Pro-B Natriuret Pep 120.5 pg/mL (0-900) 05/07/21 22:44 Total Protein 6.6 g/dL (6.3-8.2) 05/11/21 04:56 Albumin 3.3 g/dL (3.9-5) L 05/11/21 04:56 Albumin/Globulin Ratio 1.0 % 05/11/21 04:56 Procalcitonin 0.07 ng/mL (<0.15) 05/07/21 22:44 Coronavirus (PCR) Positive (Negative) A 05/11/21 Unknown Mcdonough/IV: Voiding Method Toilet Active Medications - Current Medications Current Medications: Generic Name Dose Route Start Last Admin Trade Name Freq PRN Reason Stop Dose Admin Acetaminophen 650 mg 05/08/21 01:46 05/09/21 17:05 Acetaminophen 325 Mg Tab PO 650 mg Q4H PRN Administration Pain MILD(1-3)/Fever >100.5/MARTINEZ Azithromycin 500 mg 05/09/21 17:00 05/11/21 10:03 Azithromycin 250 Mg Tab PO 05/13/21 16:59 500 mg QDAY JEOVANY Administration Protocol Cefuroxime Axetil 500 mg 05/09/21 22:00 05/11/21 10:03 Cefuroxime 250 Mg Tab PO 05/13/21 21:59 500 mg Q12HR JEOVANY Administration Dexamethasone 6 mg 05/11/21 15:00 05/11/21 17:00 Dexamethasone 4 Mg Tab PO 05/21/21 14:59 6 mg DAILY JEOVANY Administration Heparin Sodium (Porcine) 5,000 unit 05/08/21 06:00 05/11/21 14:21 Heparin 5,000 Unit/1 Ml Vial SUB-Q 5,000 unit Q8HR JEOVANY Administration Sodium Chloride 1,000 mls @ 75 mls/hr 05/08/21 02:00 05/10/21 06:12 Nacl 0.9% 1000 Ml IV 75 mls/hr DIRECT JEOVANY Administration Magnesium Hydroxide 30 ml 05/08/21 01:46 Magnesium Hydroxide (Mom) Oral Liqd Udc PO Q4H PRN Constipation Ondansetron HCl 4 mg 05/08/21 01:46 Ondansetron 4 Mg/2 Ml Inj IV Q8H PRN Nausea And Vomiting Sodium Chloride 10 ml 05/08/21 10:00 05/11/21 10:03 Sodium Chloride 0.9% 10 Ml Flush Syringe IV 10 ml BID JEOVANY Administration Sodium Chloride 10 ml 05/08/21 01:46 Sodium Chloride 0.9% 10 Ml Flush Syringe IV PRN PRN LINE FLUSH
[2021-05-11] MEDS: SODIUM CHLORIDE 0.9% 1000 ML 1,000 ML IV SCH (22:10)
[2021-05-12] MEDS: HEPARIN 5,000 UNIT/1 ML VIAL SUB-Q SCH ×3 (06:00→22:19)
[2021-05-12] MEDS: AZITHROMYCIN 250 MG TAB PO SCH (09:23)
[2021-05-12] MEDS: DEXAMETHASONE 4 MG TAB PO SCH (09:23)
--- NOTE | 2021-05-12 12:30 | Progress Note ---
Assessment and Plan Cultures: 05/07/2021 SARS CoV2 PCR: negative 05/10/2021 SARS CoV2 PCR: Indeterminate 05/11/2021 COVID-19 PCR: Positive A/P: 66/F with: #Bilateral pneumonia: initially negative for COVID-19 but high suspicion, finally positive. CRP 5.6, procalcitonin 0.07. Chest x-ray showed patchy bilateral pneumonia. Ferritin 181, LDH 429. D-dimer 967. #Acute hypoxic respiratory failure: requiring NC. Recs: -Finally COVID-19 PCR is positive, continue Decadron to complete 10-day course -added Remdesivir x 5 days, while inpatient -Antibiotics discontinued -ambulatory sats, consider discharge once improved Dariana Doherty MD, FACP, [facility] O: [phone] F: [phone] Subjective Date of service: 05/12/21 Interval history: No fever. 3rd COVID-19 test came back positive. Objective - Exam Narrative Exam: Physical Exam (deferred to minimize risk of COVID-19 transmission) - Constitutional Vitals: Vital Signs Temp Pulse Resp BP Pulse Ox 98.0 F 72 18 173/78 97 05/12/21 08:08 05/12/21 08:08 05/12/21 08:08 05/12/21 08:08 05/12/21 10:00 Temperature -Last 24 Hours Temperature 98.0 F Temperature 98.0 F Temperature 99.0 F Temperature 99.0 F Temperature 98.5 F Temperature 98.4 F - Labs CBC & Chem 7: 05/09/21 10:03 05/11/21 04:56 Labs: Abnormal lab results 05/11/21 Range/Units Unknown Coronavirus (PCR) Positive A (Negative)
[2021-05-12 14:05] LABS: Alanine Aminotransferase 73 units/L (7-56); Albumin 3.7 g/dL (3.9-5); Blood Urea Nitrogen 12 mg/dL (7-17); Calcium 9.5 mg/dL (8.4-10.2); Hemolysis Index 13
[2021-05-12 14:20] LABS: BUN/Creatinine Ratio 17
[2021-05-12] MEDS ORDERED: REMDESIVIR 200 MG in SODIUM CHLORIDE 0.9% 250ML 250 ML IV ONE (15:00)
[2021-05-12] MEDS ORDERED: SODIUM CHLORIDE 0.9% 50 ML IVPB IV SCH (15:30)
--- NOTE | 2021-05-12 19:26 | Progress Note ---
Assessment and Plan Assessment and plan: 66-year-old female with PMH of morbid obesity and ex-smoker quit smoking in 2019 presenting to the emergency room with a 2-week history of shortness of breath and cough . Cough has been productive of some clear sputum. She denies any fever or chills and denies any chest pain. She also indicates that she has noticed some mild swelling of her lower extremities. She denies any headache or dizziness and denies any diaphoresis. Patient decided to call EMS today because of her worsening shortness of breath. She is not vaccinated against COVID-19.She denies any sick contacts and no recent travel. Denies any contact with anyone with COVID-19.Work-up in the emergency room today chest x- ray shows bilateral pneumonia. Found to be hypoxic needing 3 L of O2. Patient denies history of COPD and never needed home O2. Does not use any inhalers at home. (1) COVID-19 bilateral pneumonia Current Visit: Yes Status: Acute Plan to address problem: CTA shows diffuse bilateral pneumonia with infiltrates in all lobes of lungs without adenopathy. patient placed on empiric IV antibiotics and steroid. CRP 5.6. LDH 429. CBC and CMP normal. Not vaccinated against COVID-19. Remains afebrile. PCR first test negative but the repeat positive for COVID-19. PCR improved from 5.6-0.8. No indication for remdesivir. Stopped empiric antibiotics. She will need to complete 10-day course of Decad devonte. (2) acute hypoxic respiratory failure Current Visit: Yes Status: Acute Plan to address problem: Will keep O2 saturation greater than equal to 92%. Currently needing 3 L O2 May need home O2. (3) D-dimer 967 CTA negative for pulmonary medicine. Ultrasound negative for DVT in lower extremities. DVT prophylaxis Current Visit: Yes Status: Acute Plan to address problem: Patient was placed on subcutaneous heparin. (4) Full code status Current Visit: Yes Status: Acute Plan to address problem: Patient is a full code. Disposition: Patient is doing well, possible discharge tomorrow on home O2 Discussed with the patient. History Interval history: Repeat COVID PCR test positive. Patient reports feel better generally. Still has cough. Clear sputum. Breathing improved, needing 3 L of O2. Remains afebrile. Tolerating diet. Hospitalist Physical - Constitutional Vitals: Temp Pulse Resp BP Pulse Ox 98.8 F 79 18 170/61 97 05/12/21 16:08 05/12/21 16:08 05/12/21 16:08 05/12/21 16:08 05/12/21 16:08 General appearance: Present: no acute distress, obese - EENT Eyes: Present: PERRL, EOM intact ENT: clear oral mucosa - Neck Neck: Present: supple - Respiratory Respiratory: bilateral: diminished - Cardiovascular Rhythm: regular - Extremities Extremities: No edema - Abdominal General gastrointestinal: non-tender - Integumentary Integumentary: Absent: rash - Psychiatric Psychiatric: appropriate mood/affect - Neurologic Neurologic: no focal deficits, moves all extremities HEART Score - HEART Score Troponin: Troponin T < 0.010 ng/mL (0.00-0.029) 05/07/21 22:44 Results - Labs CBC & Chem 7: 05/09/21 10:03 05/13/21 04:49 Labs: Laboratory Last Values WBC 7.3 K/mm3 (4.5-11.0) 05/09/21 10:03 RBC 4.12 M/mm3 (3.65-5.03) 05/09/21 10:03 Hgb 12.2 gm/dl (10.1-14.3) 05/09/21 10:03 Hct 37.9 % (30.3-42.9) 05/09/21 10:03 MCV 92 fl (79-97) 05/09/21 10:03 MCH 30 pg (28-32) 05/09/21 10:03 MCHC 32 % (30-34) 05/09/21 10:03 RDW 14.0 % (13.2-15.2) 05/09/21 10:03 Plt Count 450 K/mm3 (140-440) H 05/09/21 10:03 Lymph % (Auto) 16.5 % (13.4-35.0) 05/09/21 10:03 [place] % (Auto) 5.2 % (0.0-7.3) 05/09/21 10:03 Eos % (Auto) 0.1 % (0.0-4.3) 05/09/21 10:03 Baso % (Auto) 0.9 % (0.0-1.8) 05/09/21 10:03 Lymph # (Auto) 1.2 K/mm3 (1.2-5.4) 05/09/21 10:03 [place] # (Auto) 0.4 K/mm3 (0.0-0.8) 05/09/21 10:03 Eos # (Auto) 0.0 K/mm3 (0.0-0.4) 05/09/21 10:03 Baso # (Auto) 0.1 K/mm3 (0.0-0.1) 05/09/21 10:03 Add Manual Diff Complete 05/07/21 22:44 Total Counted 100 05/07/21 22:44 Seg Neutrophils % 77.3 % (40.0-70.0) H 05/09/21 10:03 Seg Neuts % (Manual) 67.0 % (40.0-70.0) 05/07/21 22:44 Band Neutrophils % 3.0 % 05/07/21 22:44 Lymphocytes % (Manual) 26.0 % (13.4-35.0) 05/07/21 22:44 Reactive Lymphs % (Man) 0 % 05/07/21 22:44 Monocytes % (Manual) 4.0 % (0.0-7.3) 05/07/21 22:44 Eosinophils % (Manual) 0 % (0.0-4.3) 05/07/21 22:44 Basophils % (Manual) 0 % (0.0-1.8) 05/07/21 22:44 Metamyelocytes % 0 % 05/07/21 22:44 Myelocytes % 0 % 05/07/21 22:44 Promyelocytes % 0 % 05/07/21 22:44 Blast Cells % 0 % 05/07/21 22:44 Nucleated RBC % Not Reportable 05/07/21 22:44 Seg Neutrophils # 5.7 K/mm3 (1.8-7.7) 05/09/21 10:03 Seg Neutrophils # Man 3.8 K/mm3 (1.8-7.7) 05/07/21 22:44 Band Neutrophils # 0.2 K/mm3 05/07/21 22:44 Lymphocytes # (Manual) 1.5 K/mm3 (1.2-5.4) 05/07/21 22:44 Abs React Lymphs (Man) 0.0 K/mm3 05/07/21 22:44 Monocytes # (Manual) 0.2 K/mm3 (0.0-0.8) 05/07/21 22:44 Eosinophils # (Manual) 0.0 K/mm3 (0.0-0.4) 05/07/21 22:44 Basophils # (Manual) 0.0 K/mm3 (0.0-0.1) 05/07/21 22:44 Metamyelocytes # 0.0 K/mm3 05/07/21 22:44 Myelocytes # 0.0 K/mm3 05/07/21 22:44 Promyelocytes # 0.0 K/mm3 05/07/21 22:44 Blast Cells # 0.0 K/mm3 05/07/21 22:44 WBC Morphology Not Reportable 05/07/21 22:44 Hypersegmented Neuts Not Reportable 05/07/21 22:44 Hyposegmented Neuts Not Reportable 05/07/21 22:44 Hypogranular Neuts Not Reportable 05/07/21 22:44 Smudge Cells Not Reportable 05/07/21 22:44 Toxic Granulation Not Reportable 05/07/21 22:44 Toxic Vacuolation Not Reportable 05/07/21 22:44 Dohle Bodies Not Reportable 05/07/21 22:44 Pelger-Huet Anomaly Not Reportable 05/07/21 22:44 Anabella Rods Not Reportable 05/07/21 22:44 Platelet Estimate Consistent w auto 05/07/21 22:44 Clumped Platelets Not Reportable 05/07/21 22:44 Plt Clumps, EDTA Not Reportable 05/07/21 22:44 Large Platelets Not Reportable 05/07/21 22:44 Giant Platelets Not Reportable 05/07/21 22:44 Platelet Satelliting Not Reportable 05/07/21 22:44 Plt Morphology Comment Not Reportable 05/07/21 22:44 RBC Morphology Not Reportable 05/07/21 22:44 Dimorphic RBCs Not Reportable 05/07/21 22:44 Polychromasia Not Reportable 05/07/21 22:44 Hypochromasia Not Reportable 05/07/21 22:44 Poikilocytosis Not Reportable 05/07/21 22:44 Anisocytosis Not Reportable 05/07/21 22:44 Microcytosis Not Reportable 05/07/21 22:44 Macrocytosis Not Reportable 05/07/21 22:44 Spherocytes Not Reportable 05/07/21 22:44 Pappenheimer Bodies Not Reportable 05/07/21 22:44 Sickle Cells Not Reportable 05/07/21 22:44 Target Cells Not Reportable 05/07/21 22:44 Tear Drop Cells Not Reportable 05/07/21 22:44 Ovalocytes Not Reportable 05/07/21 22:44 Helmet Cells Not Reportable 05/07/21 22:44 Morrison-[place] Bodies Not Reportable 05/07/21 22:44 [place] Rings Not Reportable 05/07/21 22:44 [place] Cells Not Reportable 05/07/21 22:44 Bite Cells Not Reportable 05/07/21 22:44 Crenated Cell Not Reportable 05/07/21 22:44 Elliptocytes Not Reportable 05/07/21 22:44 Acanthocytes (Spur) Not Reportable 05/07/21 22:44 Rouleaux Not Reportable 05/07/21 22:44 Hemoglobin C Crystals Not Reportable 05/07/21 22:44 Schistocytes Not Reportable 05/07/21 22:44 Malaria parasites Not Reportable 05/07/21 22:44 Matthew Bodies Not Reportable 05/07/21 22:44 Hem Pathologist Commnt No 05/07/21 22:44 D-Dimer 873.11 ng/mlDDU (0-234) H 05/11/21 04:56 Sodium 141 mmol/L (137-145) 05/12/21 13:30 Potassium 4.1 mmol/L (3.6-5.0) 05/12/21 13:30 Chloride 105.8 mmol/L (98-107) 05/12/21 13:30 Carbon Dioxide 21 mmol/L (22-30) L 05/12/21 13:30 Anion Gap 18 mmol/L 05/12/21 13:30 BUN 12 mg/dL (7-17) 05/12/21 13:30 Creatinine 0.7 mg/dL (0.6-1.2) 05/12/21 13:30 Estimated GFR > 60 ml/min 05/12/21 13:30 BUN/Creatinine Ratio 17 % 05/12/21 13:30 Glucose 149 mg/dL (65-100) H 05/12/21 13:30 Calcium 9.5 mg/dL (8.4-10.2) 05/12/21 13:30 Ferritin 181.3 ng/mL (10.0-200.0) 05/07/21 22:44 Total Bilirubin 0.30 mg/dL (0.1-1.2) 05/12/21 13:30 AST 70 units/L (5-40) H 05/12/21 13:30 ALT 73 units/L (7-56) H 05/12/21 13:30 Alkaline Phosphatase 93 units/L (35-129) 05/12/21 13:30 Lactate Dehydrogenase 429 units/L (91-180) H 05/07/21 22:44 Troponin T < 0.010 ng/mL (0.00-0.029) 05/07/21 22:44 C-Reactive Protein 0.80 mg/dL (0.00-1.30) 05/11/21 04:56 NT-Pro-B Natriuret Pep 120.5 pg/mL (0-900) 05/07/21 22:44 Total Protein 7.7 g/dL (6.3-8.2) 05/12/21 13:30 Albumin 3.7 g/dL (3.9-5) L 05/12/21 13:30 Albumin/Globulin Ratio 0.9 % 05/12/21 13:30 Procalcitonin 0.07 ng/mL (<0.15) 05/07/21 22:44 Coronavirus (PCR) Positive (Negative) A 05/11/21 Unknown Mcdonough/IV: Voiding Method Toilet Active Medications - Current Medications Current Medications: Generic Name Dose Route Start Last Admin Trade Name Freq PRN Reason Stop Dose Admin Acetaminophen 650 mg 05/08/21 01:46 05/09/21 17:05 Acetaminophen 325 Mg Tab PO 650 mg Q4H PRN Administration Pain MILD(1-3)/Fever >100.5/MARTINEZ Azithromycin 500 mg 05/09/21 17:00 05/12/21 09:23 Azithromycin 250 Mg Tab PO 05/13/21 16:59 500 mg QDAY JEOVANY Administration Protocol Cefuroxime Axetil 500 mg 05/09/21 22:00 05/12/21 09:23 Cefuroxime 250 Mg Tab PO 05/13/21 21:59 500 mg Q12HR JEOVANY Administration Dexamethasone 6 mg 05/11/21 15:00 05/12/21 09:23 Dexamethasone 4 Mg Tab PO 05/21/21 14:59 6 mg DAILY JEOVANY Administration Heparin Sodium (Porcine) 5,000 unit 05/08/21 06:00 05/12/21 16:09 Heparin 5,000 Unit/1 Ml Vial SUB-Q 5,000 unit Q8HR JEOVANY Administration Sodium Chloride 1,000 mls @ 75 mls/hr 05/08/21 02:00 05/11/21 22:10 Nacl 0.9% 1000 Ml IV 75 mls/hr DIRECT JEOVANY Administration REMDESIVIR 100 mg/ Sodium 250 mls @ 500 mls/hr 05/13/21 21:00 Chloride IV 05/16/21 21:29 Q24HR@2100 JEOVANY Magnesium Hydroxide 30 ml 05/08/21 01:46 Magnesium Hydroxide (Mom) Oral Liqd Udc PO Q4H PRN Constipation Ondansetron HCl 4 mg 05/08/21 01:46 Ondansetron 4 Mg/2 Ml Inj IV Q8H PRN Nausea And Vomiting Sodium Chloride 10 ml 05/08/21 10:00 05/12/21 09:24 Sodium Chloride 0.9% 10 Ml Flush Syringe IV 10 ml BID JEOVANY Administration Sodium Chloride 10 ml 05/08/21 01:46 Sodium Chloride 0.9% 10 Ml Flush Syringe IV PRN PRN LINE FLUSH Sodium Chloride 50 ml 05/12/21 15:30 05/12/21 16:19 Sodium Chloride 0.9% 50 Ml Ivpb IV 05/16/21 21:01 50 ml Q24HR@2100 JEOVANY Administration
[2021-05-12] MEDS: SODIUM CHLORIDE 0.9% 1000 ML 1,000 ML IV SCH (22:19)
[2021-05-13] MEDS ORDERED: hydrALAZINE 20 MG/1 ML INJ IV PRN (01:12)
[2021-05-13] MEDS ORDERED: ZOLPIDEM 5 MG TAB PO PRN (01:15)
[2021-05-13] MEDS: HEPARIN 5,000 UNIT/1 ML VIAL SUB-Q SCH ×2 (06:05→13:59)
[2021-05-13 06:25] LABS: Alanine Aminotransferase 56 units/L (7-56); Albumin 3.1 g/dL (3.9-5); BUN/Creatinine Ratio 20; Blood Urea Nitrogen 12 mg/dL (7-17); Calcium 8.6 mg/dL (8.4-10.2); Hemolysis Index 12
[2021-05-13] MEDS: AZITHROMYCIN 250 MG TAB PO SCH (10:22)
[2021-05-13] MEDS: DEXAMETHASONE 4 MG TAB PO SCH (10:22)
[2021-05-13 11:07] VITALS: BP 150/67
--- NOTE | 2021-05-13 11:14 | Discharge Summary ---
Providers - Providers Date of Admission: 05/08/21 01:46 Date of discharge: 05/13/21 Attending physician: BELLE ZHAO 05/08/21 01:46 Consult to Physician [CONS] Routine Comment: Consulting Provider: GISSELL AGUILAR Physician Instructions: Reason For Exam: PUI,HYPOXIA Primary care physician: ZEESHAN KO MD Hospitalization Condition: Stable Disposition: 01 HOME / SELF CARE / HOMELESS Exam - Constitutional Vitals: Temp Pulse Resp BP Pulse Ox 98.2 F 88 17 150/67 98 05/13/21 11:07 05/13/21 11:07 05/13/21 11:07 05/13/21 11:07 05/13/21 11:07 Plan Follow up with: PRIMARY CARE, [Primary Care Provider] - 3-5 Days
--- NOTE | 2021-05-13 12:08 | Progress Note ---
Assessment and Plan Cultures: 05/07/2021 SARS CoV2 PCR: negative 05/10/2021 SARS CoV2 PCR: Indeterminate 05/11/2021 COVID-19 PCR: Positive A/P: 66/F with: #Bilateral pneumonia: initially negative for COVID-19 but high suspicion, finally positive. CRP 5.6, procalcitonin 0.07. Chest x-ray showed patchy bilateral pneumonia. Ferritin 181, LDH 429. D-dimer 967. #Acute hypoxic respiratory failure: requiring NC. Recs: -weaned off oxygen, didn't qualify for home oxygen based on ambulatory sats, OK for discharge on Decadron to complete 10-day course -doesn't need to complete entire remdesivir course ID will sign off. Dariana Doherty MD, FACP, [facility] ([facility]) O: [phone] F: [phone] Subjective Date of service: 05/13/21 Interval history: No fever. Weaned off oxygen, cleared ambulatory sats. Objective - Exam Narrative Exam: Physical Exam (deferred to minimize risk of COVID-19 transmission) - Constitutional Vitals: Vital Signs Temp Pulse Resp BP Pulse Ox 98.2 F 88 17 150/67 98 05/13/21 11:07 05/13/21 11:07 05/13/21 11:07 05/13/21 11:07 05/13/21 11:07 Temperature -Last 24 Hours Temperature 98.2 F Temperature 98.2 F Temperature 97.9 F Temperature 97.9 F Temperature 98.2 F Temperature 98.1 F Temperature 98.8 F - Labs CBC & Chem 7: 05/09/21 10:03 05/13/21 04:49 Labs: Abnormal lab results 05/12/21 05/13/21 Range/Units 13:30 04:49 Chloride 111.4 H (98-107) mmol/L Carbon Dioxide 21 L 20 L (22-30) mmol/L Glucose 149 H 112 H (65-100) mg/dL AST 70 H 44 H (5-40) units/L ALT 73 H (7-56) units/L Albumin 3.7 L 3.1 L (3.9-5) g/dL
[2021-05-13] MEDS ORDERED: REMDESIVIR 100 MG in SODIUM CHLORIDE 0.9% 250ML 250 ML IV SCH (21:00)
== END 2021-05-13 14:55 | disposition home or self-care (01) | DRG 177 ==
LOC: ED 22:09 → 3A 05-08 01:46 → 4A 05-09 06:26
PROVIDERS: ADMIT Internal Medicine Geriatric Medicine; ATTEND Internal Medicine
PROC: XW033E5 Introduction of Remdesivir Anti-infective into Peripheral Vein, Percutaneous Approach, New Technology Group 5 (ICD-10-PCS; principal; 2021-05-08)
DX: U07.1 COVID-19 (principal); J12.82 Pneumonia due to coronavirus disease 2019; J96.01 Acute respiratory failure with hypoxia; Z68.41 Body mass index [BMI] 40.0-44.9, adult; E66.01 Morbid (severe) obesity due to excess calories; Z87.891 Personal history of nicotine dependence
CPT/HCPCS: 36415; 71045; 71275; 80053; 82728; 83615; 83880; 84145; 84484; 85007; 85025; 85379; 86140; 93005; 93970; G0378; Q0162; J0456; J0696; J1644; J7030; J7050; J8540; Q9967; U0003